=== PATIENT | male | born 1980 | race Caucasian/White ===

== ENCOUNTER 2018-02-13 16:08 | Emergency (ER) | payer MEDICAID ==
[2018-02-13 16:31] VITALS: BP 126/92
[2018-02-13] MEDS ORDERED: Diphtheria,Pertussis(Acell),Tetanus Vaccine 0.5 ML Syringe IM ONE (16:46)
[2018-02-13] MEDS ORDERED: Lidocaine 1% 20 ML MDV ONE (16:47)
[2018-02-13] MEDS ORDERED: Lidocaine 1% 20 ML MDV INJECT ONE (17:01)
[2018-02-13] MEDS ORDERED: Bacitracin/Neomycin/Polymyxin B Oint 0.9 GM U/D Packet TOP ONE (17:52)
[2018-02-13] MEDS ORDERED: Cephalexin 500 MG Cap PO ONE (18:01)
--- NOTE | 2018-02-13 18:04 | EDM.PDOC ---
ED HPI GENERAL MEDICAL PROBLEM - General Chief Complaint: Laceration Stated Complaint: LAC Time Seen by Provider: 02/13/18 16:50 - History of Present Illness INITIAL COMMENTS - FREE TEXT/NARRATIVE: Jeffry is a 37 year old male who presents to the ED with c/o laceration to his right thumb. 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 There is skin flap present, which is already greyish in color. Reports incident happened 1.5 hours prior to ED presentation. Reports numbness to tip of thumb. ROM intact. No other complaints. Onset: Today, Sudden Onset Date: 02/13/18 Onset Time: 13:30 Duration: Constant Location: Reports: Other (right thumb) Quality: Reports: Stabbing, Throbbing Severity: Severe Improves with: Reports: None Worsens with: Reports: None Associated Symptoms: Reports: No Other Symptoms Right Hand Pain Score (Numeric/FACES): 6 - Related Data Allergies Allergy/AdvReac Type Severity Reaction Status Date / Time No Known Allergies Allergy Verified 02/13/18 16:31 Home Meds: Home Meds Cephalexin [Keflex] 500 mg PO BID #19 capsule 02/13/18 [Rx] Pregabalin [Lyrica] 50 mg PO TID 02/13/18 [History] Past Medical History - Past Health History Medical/Surgical History: Denies Medical/Surgical History - Past Surgical History HEENT Surgical History: Reports: Other (See Below) Other HEENT Surgeries/Procedures: R) eye surgery Musculoskeletal Surgical History: Reports: Other (See Below) Other Musculoskeletal Surgeries/Procedures:: L) ankle repair Social & Family History - Tobacco Use Smoking Status *Q: Never Smoker - Caffeine Use Caffeine Use: Reports: Soda - Recreational Drug Use Recreational Drug Use: No ED ROS GENERAL - Review of Systems Review Of Systems: ROS reveals no pertinent complaints other than HPI. ED EXAM, SKIN/RASH Exam: See Below Exam Limited By: No Limitations General Appearance: Alert, WD/WN, No Apparent Distress Peripheral Pulses: 2+: Radial (R) Extremities: Normal Range of Motion, Normal Capillary Refill, Other (laceration to right thumb) Neurological: Alert, Oriented, CN II-XII Intact, Normal Cognition, Normal Gait, Normal Reflexes, No Motor/Sensory Deficits Skin: Other (4 cm laceration to distal aspect of right thumb in crescent shape) ED SKIN PROCEDURES - Laceration/Wound Repair Right Digit - 1st (Thumb) Lac/Wound length In cm: 4 Appearance: Subcutaneous Distal NVT: No Tendon Injury Anesthetic Type: Local Local Anesthesia - Lidocaine (Xylocaine): 1% Plain Local Anesthetic Volume: 2cc Skin Prep: Providone-Iodine (Betadine) Exploration/Debridement/Repair: Wound Explored, No Foreign Material Found Closed with: Sutures Suture Size: 4-0 # of Sutures: 10 Suture Type: Nylon Sterile Dressing Applied: Nurse Tetanus Status Addressed: Yes Complications: No Course - Vital Signs Last Recorded V/S: Last Vital Signs Temp 97.6 F 02/13/18 16:28 Pulse 87 02/13/18 16:28 Resp 18 02/13/18 16:28 BP 126/92 H 02/13/18 16:28 Pulse Ox 97 02/13/18 16:28 - Orders/Labs/Meds Orders: Active Orders 24 hr Category Date Time Status Vaccines to be Administered [RC] PER UNIT ROUTINE Care 02/13/18 16:46 Active Meds: Medications Discontinued Medications Generic Name Dose Route Start Last Admin Trade Name Toyq PRN Reason Stop Dose Admin Cephalexin 500 mg 02/13/18 18:01 02/13/18 18:04 Keflex PO 02/13/18 18:02 500 mg ONETIME ONE Administration Diphtheria/Tetanus/Acell Pertussis 0.5 ml 02/13/18 16:46 02/13/18 17:20 Adacel IM 02/13/18 16:47 0.5 ml .ONCE ONE Administration Lidocaine HCl Confirm 02/13/18 16:47 02/13/18 17:02 Xylocaine 1% Administered 02/13/18 16:48 Not Given Dose 20 ml .ROUTE .STK-MED ONE Lidocaine HCl 20 ml 02/13/18 17:01 02/13/18 17:20 Xylocaine 1% INJECT 02/13/18 17:02 10 ml ONETIME ONE Administration Neomycin/Polymyxin/Bacitracin 1 each 02/13/18 17:52 02/13/18 18:01 Triple Antibiotic Oint TOP 02/13/18 17:53 1 each ONETIME ONE Administration Departure - Departure Time of Disposition: 17:59 Disposition: Home, Self-Care 01 Condition: Good Clinical Impression: Laceration of finger of right hand without damage to nail Qualifiers: Encounter type: initial encounter Finger: thumb Foreign body presence: without foreign body Qualified Code(s): S61.011A - Laceration without foreign body of right thumb without damage to nail, initial encounter - Discharge Information *PRESCRIPTION DRUG MONITORING PROGRAM REVIEWED*: Not Applicable *COPY OF PRESCRIPTION DRUG MONITORING REPORT IN PATIENT RONNA: Not Applicable Prescriptions: Cephalexin [Keflex] 500 mg PO BID #19 capsule Instructions: Sutured Wound Care, [id number] Referrals: Lisbeth Nolasco PA-C [Primary Care Provider] - Forms: ED Department Discharge Additional Instructions: Keep area clean and dry Keep covered when working in dirty condition Okay to shower in 48 hours Do not soak hand in tub etc. Apply Neosporin daily Keflex twice daily. Script at pharmacy. Discussed with patient that I worry area may not heal well given the fact that skin flap already was dusky upon arrival. Follow up for suture removal in 10 days - My Orders Last 24 Hours: My Active Orders 02/13/18 16:46 Vaccines to be Administered [RC] PER UNIT ROUTINE - Assessment/Plan Last 24 Hours: My Active Orders 02/13/18 16:46 Vaccines to be Administered [RC] PER UNIT ROUTINE
== END 2018-02-13 18:10 | disposition home or self-care (01) ==
LOC: CC.ED 16:08
DX: S61.011A Laceration without foreign body of right thumb without damage to nail, initial encounter (principal); Z23 Encounter for immunization; W26.0XXA Contact with knife, initial encounter; Z79.899 Other long term (current) drug therapy
CPT/HCPCS: 12002; 90471; 90715; 99283; A9270-GY

== ENCOUNTER 2019-01-25 10:47 | Emergency (ER) | payer SELFPAY ==
[2019-01-25 10:48] VITALS: BP 146/93; PULSE 101
[2019-01-25] MEDS ORDERED: MVI, Adult with Vitamin K 10 ML, Folic Acid 1 MG, Thiamine 100 MG, Magnesium Sulfate 2 ... IV ONE ×5 (11:23)
[2019-01-25] MEDS ORDERED: Ondansetron 4 MG/2 ML SDV IVPUSH STA (11:23)
[2019-01-25 11:55] LABS: CHLORIDE,CL 104 mEq/L (98-106); SODIUM,NA 142 mEq/L (136-145)
--- NOTE | 2019-01-25 12:16 | EDM.PDOC ---
ED HPI GENERAL MEDICAL PROBLEM - General Chief Complaint: General Stated Complaint: Alcohol Detox? Time Seen by Provider: 01/25/19 11:03 Source of Information: Reports: Patient History Limitations: Reports: No Limitations - History of Present Illness INITIAL COMMENTS - FREE TEXT/NARRATIVE: This patient is a 38 year old male that presents to the ER. Patient reports he has drank alcohol for years on a daily basis. Patient reports last time he got in patient detox was about 7 years in 2011 in [place]. Patient reports that he does have an appointment in [place] on , but reports he can not wait that long. Patient reports he tried to slow down his drinking in the last 24 hours, but has not been able to do so. He reports when he tried today, he has been vomiting and having nausea. He reports having pain everywhere.Patient reports he drinks 1 Liter of Whiskey a day. Onset: Today Onset Date: 01/25/19 Severity: Mild Improves with: Reports: None Worsens with: Reports: None Associated Symptoms: Reports: Nausea/Vomiting, Other (hurts "everywhere"). Denies: Confusion, Chest Pain, Cough, cough w sputum, Diaphoresis, Fever/Chills , Headaches, Loss of Appetite, Malaise, Rash, Seizure, Shortness of Breath, Syncope, Weakness "everywhere" Pain Score (Numeric/FACES): 8 - Related Data Allergies Allergy/AdvReac Type Severity Reaction Status Date / Time No Known Allergies Allergy Verified 02/13/18 16:31 Home Meds: Home Meds Pregabalin [Lyrica] 50 mg PO TID 02/13/18 [History] Amitriptyline [Elavil] 25 mg PO DAILY 01/25/19 [History] Ondansetron [Zofran ODT] 4 mg PO Q6H PRN #24 tab.dis 01/25/19 [Rx] hydrOXYzine HCl [Hydroxyzine HCl] 25 mg PO TID PRN 01/25/19 [History] Past Medical History - Past Health History Medical/Surgical History: Denies Medical/Surgical History - Past Surgical History HEENT Surgical History: Reports: Other (See Below) Other HEENT Surgeries/Procedures: R) eye surgery Musculoskeletal Surgical History: Reports: Other (See Below) Other Musculoskeletal Surgeries/Procedures:: L) ankle repair Social & Family History - Family History Family Medical History: Noncontributory - Tobacco Use Smoking Status *Q: Never Smoker Second Hand Smoke Exposure: No - Caffeine Use Caffeine Use: Reports: None - Alcohol Use Days Per Week of Alcohol Use: 7 Number of Drinks Per Day: 2 Total Drinks Per Week: 14 - Recreational Drug Use Recreational Drug Use: No ED ROS GENERAL - Review of Systems Review Of Systems: See Below Constitutional: Reports: No Symptoms HEENT: Reports: No Symptoms Respiratory: Reports: No Symptoms Cardiovascular: Reports: No Symptoms Endocrine: Reports: No Symptoms GI/Abdominal: Reports: Nausea, Vomiting. Denies: Abdominal Pain, Diarrhea : Reports: No Symptoms Musculoskeletal: Reports: Muscle Pain ("everywhere") Skin: Reports: No Symptoms Neurological: Reports: No Symptoms Psychiatric: Reports: Cravings (alochol). Denies: Hallucinations Hematologic/Lymphatic: Reports: No Symptoms Immunologic: Reports: No Symptoms ED EXAM, GENERAL - Physical Exam Exam: See Below Exam Limited By: No Limitations General Appearance: Alert, WD/WN, No Apparent Distress Course - Vital Signs Last Recorded V/S: Last Vital Signs Temp 96.9 F 01/25/19 10:47 Pulse 101 H 01/25/19 10:47 Resp 14 01/25/19 10:47 BP 146/93 H 01/25/19 10:47 Pulse Ox 97 01/25/19 10:47 - Orders/Labs/Meds Orders: Active Orders 24 hr Category Date Time Status DRUG SCREEN URINE BIORAD [URCHEM] Stat Lab 01/25/19 11:24 Ordered UA W/MICROSCOPIC [URIN] Stat Lab 01/25/19 11:24 Ordered Ondansetron [Take Home: Ondansetron ODT 4 MG, 2 Tab Med 01/25/19 15:43 Once Pack] 2 packet PO ONETIME ONE Labs: Laboratory Tests 01/25/19 01/25/19 Range/Units 11:24 11:24 WBC 4.0 L (5.0-10.0) 10^3/uL RBC 5.26 (4.50-6.00) 10^6/uL Hgb 15.4 (14.0-18.0) g/dL Hct 44.3 (40.0-54.0) % MCV 84.2 (82.0-94.0) fL MCH 29.3 (27.0-32.0) pg MCHC 34.8 (33.0-38.0) g/dL RDW Coeff of Tony 13.4 (11.0-15.0) % Plt Count 221 (150-400) 10^3/uL Neut % (Auto) 49.0 (35-85) % Lymph % (Auto) 39.4 (10-55) % Payette % (Auto) 9.8 (0-16) % Eos % (Auto) 1.0 (0-5) % Baso % (Auto) 0.8 (0-3) % Neut # (Auto) 1.94 (1.80-7.00) 10^3/uL Lymph # (Auto) 1.56 (1.00-4.80) 10^3/uL Payette # (Auto) 0.39 (0.00-0.80) 10^3/uL Eos # (Auto) 0.04 (0.00-0.45) 10^3/uL Baso # (Auto) 0.03 10^3/uL Sodium 142 (136-145) mEq/L Potassium 4.6 (3.5-5.0) mEq/L Chloride 104 (98-106) mEq/L Carbon Dioxide 25 (21-32) mmol/L BUN 15 D (7-18) mg/dL Creatinine 1.1 (0.7-1.3) mg/dL Est Cr Clr Drug Dosing 99.94 mL/min Estimated GFR (MDRD) > 60 (>=60) mL/min Glucose 103 H D (75-99) mg/dL Calcium 9.0 (8.4-10.1) mg/dL Total Bilirubin 0.3 (0.0-1.0) mg/dL AST 33 (15-37) U/L ALT 37 (12-78) U/L Alkaline Phosphatase 80 (46-116) U/L Total Protein 8.0 (6.4-8.2) g/dL Albumin 4.4 (3.4-5.0) g/dL Ethyl Alcohol 180 H (0-3) mg/dL Meds: Medications Discontinued Medications Generic Name Dose Route Start Last Admin Trade Name Freq PRN Reason Stop Dose Admin Multivitamins/Minerals 10 ml/ 1,015.2 mls @ 1,000 mls/hr 01/25/19 11:23 01/25 12:56 Folic Acid 1 mg/ Thiamine HCl IV 01/25/19 12:23 Infused 100 mg/ Magnesium Sulfate 2 gm ONETIME ONE Infusion / Sodium Chloride Ondansetron HCl 4 mg 01/25/19 11:23 01/25/19 11:35 Zofran IVPUSH 01/25/19 11:24 4 mg NOW STA Administration - Re-Assessments/Exams Free Text/Narrative Re-Assessment/Exam: 01/25/19 13:14 Call made to [facility] for screener 01/25/19 14:00 Spoke with shaquilleer Daiana. She will call me back to evaluate the patient. The patient labs are stable. I did call place [facility] in [place] to see if they would take the patient early. However, they do not have the capability and no nurse on site today. 01/25/19 14:53 Daiana eckert now talking on phone with patient. 01/25/19 15:37 I spoke to Daiana. Patient is going to go home and followup with Daiana. He also will followup with [facility] . Will discharge. Departure - Departure Time of Disposition: 15:38 Disposition: Home, Self-Care 01 Condition: Good Clinical Impression: Alcohol abuse - Discharge Information *PRESCRIPTION DRUG MONITORING PROGRAM REVIEWED*: Not Applicable *COPY OF PRESCRIPTION DRUG MONITORING REPORT IN PATIENT RONNA: Not Applicable Prescriptions: Ondansetron [Zofran ODT] 4 mg PO Q6H PRN #24 tab.dis PRN Reason: Nausea/Vomiting Instructions: Alcohol Use Disorder, Alcohol Withdrawal Syndrome, Alcohol Abuse and Nutrition Referrals: PCP,None [Primary Care Provider] - Forms: ED Department Discharge Additional Instructions: Followup with Screener as needed Followup with [facility] Followup with primary care provider as needed Return to the ER for worsening of condition or any emergent concerns such as confusion, seizures, or hallucinations Increase fluids Drink Gatorade Zofran 4mg 1 pill every 6 hours as needed for nausea #4 take home: #24 no refill Sepsis Event Note - Evaluation Sepsis Screening Result: No Definite Risk - Focused Exam Vital Signs: Vital Signs Temp Pulse Resp BP Pulse Ox 01/25/19 10:47 96.9 F 101 H 14 146/93 H 97 Date Exam was Performed: 01/25/19 Time Exam was Performed: 15:43 - My Orders Last 24 Hours: My Active Orders 01/25/19 11:24 DRUG SCREEN URINE BIORAD [URCHEM] Stat UA W/MICROSCOPIC [URIN] Stat 01/25/19 15:43 Ondansetron [Take Home: Ondansetron ODT 4 MG, 2 Tab Pack] 2 packet PO ONETIME ONE - Assessment/Plan Last 24 Hours: My Active Orders 01/25/19 11:24 DRUG SCREEN URINE BIORAD [URCHEM] Stat UA W/MICROSCOPIC [URIN] Stat 01/25/19 15:43 Ondansetron [Take Home: Ondansetron ODT 4 MG, 2 Tab Pack] 2 packet PO ONETIME ONE
[2019-01-25] MEDS ORDERED: Take Home: Ondansetron 4 MG Tab.DIS, 2 Tab Pack PO ONE (15:43)
[2019-01-25] MEDS ORDERED: Ondansetron 4 MG Tab.DIS ONE ×2 (16:04→16:06)
== END 2019-01-25 16:00 | disposition home or self-care (01) ==
LOC: CC.ED 10:47
DX: F10.10 Alcohol abuse, uncomplicated (principal); Y90.6 Blood alcohol level of 120-199 mg/100 ml
CPT/HCPCS: 36415; 80053; 80320; 85025; A9270; J2405; J3411; J3475; J7030; G0480; J3490